=== PATIENT | female | born 1945 | race Caucasian/White ===

== ENCOUNTER 2016-10-29 13:02 | Inpatient (IN) | payer OTHER, MEDICAID ==
[~2016-10-29] VITALS: Ht 149.9 cm; Wt 84.0 kg
[2016-10-29] VITALS (10 sets, daily range): BP systolic 78–101; BP diastolic 40–59
[~2016-10-29 13:02] MED LIST: AMITRIPTYLINE H10 MG PO; ASPIR 8181 MG PO; CIPROFLOXACIN500 MG PO; GEMFIBROZIL600 MG PO; GLUCOTROL10 MG PO; HYDROCHLOROTHIA25 MG PO; JANUVIA100 M1 PO; LAC PO; LANTUS SOLOS100 U/M1 SC; MAC100 PO; NEU300 PO; TENORMIN25 MG PO; TRAMADOL HCL50 MG PO
[2016-10-29 14:15] LABS: PLATELET COUNT 238 x10^3mcL (130-400); RED CELL DISTRIBUTION WIDTH 14.2 % (11.5-14.5)
[2016-10-29 14:25] LABS: BAND NEUTROPHIL 4 % (0-10); BASOPHIL 0 % (0-2); MONOCYTE 6 % (0-7); SEGMENTED NEUTROPHILS 86 % (37-75)
[2016-10-29 14:27] LABS: rbc morphology (normal/abnorm) ABNORMAL (NORMAL)
[2016-10-29 14:28] LABS: PLATELET MORPHOLOGY PLATELETS INCREASED
[2016-10-29 14:40] LABS: ALKALINE PHOSPHATASE 170 U/L (46-116); ALT/SGPT 17 U/L (14-59); AST/SGOT 14 U/L (15-37); BILIRUBIN TOTAL 0.58 mg/dL (0.20-1.00); CALCIUM 8.8 mg/dL (8.5-10.1); CARBON DIOXIDE 29.5 mmol/L (21-32); CHLORIDE SERUM 95 mmol/L (98-107); CREATININE SERUM 1.4 mg/dL (0.6-1.0); POTASSIUM SERUM 3.6 mmol/L (3.5-5.1); SODIUM SERUM 132 mmol/L (136-145); TOTAL PROTEIN, SERUM 7.7 g/dL (6.4-8.2)
[2016-10-29 14:40] LABS: microscopic required? YES; urine erythrocyte 1+ (NEGATIVE)
[2016-10-29 14:41] LABS: ALBUMIN 2.8 g/dL (3.4-5.0)
[2016-10-29 14:43] LABS: GLUCOSE SERUM 457 mg/dL (74-106)
[2016-10-29 14:55] LABS: CK-MB < 0.5 ng/mL (0-3.6); CREATINE KINASE 71 U/L (26-192)
[2016-10-29 16:59] LABS: MAGNESIUM 1.6 mg/dL (1.8-2.4); PHOSPHOROUS 1.9 mg/dL (2.5-4.9)
[2016-10-29 17:01] LABS: T3 TOTAL 0.75 ng/mL
[2016-10-29 17:08] LABS: CHOLESTEROL/HDL RATIO 3.4
[2016-10-29 17:10] LABS: FREE T4 1.18 ng/dL (0.76-1.46); FREE THYROXINE INDEX 2.6 ug/dL (1.4-4.5); T4(THYROXINE) 7.2 ug/dL (4.7-13.3)
[2016-10-30 03:23] VITALS: BP 122/86
[2016-10-30 05:20] LABS: CALCIUM 7.7 mg/dL (8.5-10.1); CARBON DIOXIDE 29.4 mmol/L (21-32); CHLORIDE SERUM 103 mmol/L (98-107); GLUCOSE SERUM 252 mg/dL (74-106); MAGNESIUM 2.4 mg/dL (1.8-2.4); PHOSPHOROUS 2.3 mg/dL (2.5-4.9); POTASSIUM SERUM 3.3 mmol/L (3.5-5.1); SODIUM SERUM 134 mmol/L (136-145)
[2016-10-30 05:22] LABS: BASOPHIL % 0.2 % (0-2); PLATELET COUNT 229 x10^3mcL (130-400); RED CELL DISTRIBUTION WIDTH 14.4 % (11.5-14.5)
[2016-10-30 08:00] VITALS: BP 122/66
[2016-10-30 12:30] VITALS: BP 109/54
[2016-10-30 16:45] VITALS: BP 98/53
[2016-10-30 22:09] VITALS: BP 104/58
[2016-10-31 06:12] VITALS: BP 113/60
[2016-10-31 09:47] VITALS: BP 114/69
[2016-10-31 10:53] LABS: CALCIUM 8.2 mg/dL (8.5-10.1); CARBON DIOXIDE 26.3 mmol/L (21-32); CHLORIDE SERUM 107 mmol/L (98-107); GLUCOSE SERUM 201 mg/dL (74-106); MAGNESIUM 1.9 mg/dL (1.8-2.4); PHOSPHOROUS 2.8 mg/dL (2.5-4.9); POTASSIUM SERUM 4.8 mmol/L (3.5-5.1); SODIUM SERUM 140 mmol/L (136-145)
[2016-10-31 13:05] LABS: BASOPHIL % 0.3 % (0-2); PLATELET COUNT 266 x10^3mcL (130-400); RED CELL DISTRIBUTION WIDTH 15.2 % (11.5-14.5)
[2016-10-31 14:25] VITALS: BP 139/68
[2016-10-31 17:26] VITALS: BP 131/73
[2016-10-31 22:10] VITALS: BP 138/77
[2016-11-01 06:31] LABS: BASOPHIL % 0.5 % (0-2); PLATELET COUNT 286 x10^3mcL (130-400)
[2016-11-01 06:58] LABS: CALCIUM 8.4 mg/dL (8.5-10.1); CARBON DIOXIDE 27.4 mmol/L (21-32); CHLORIDE SERUM 109 mmol/L (98-107); CREATININE SERUM 0.8 mg/dL (0.6-1.0); GLUCOSE SERUM 86 mg/dL (74-106); MAGNESIUM 1.8 mg/dL (1.8-2.4); PHOSPHOROUS 3.4 mg/dL (2.5-4.9); POTASSIUM SERUM 3.9 mmol/L (3.5-5.1); SODIUM SERUM 142 mmol/L (136-145)
[2016-11-01 07:32] LABS: RED CELL DISTRIBUTION WIDTH 14.9 % (11.5-14.5)
[2016-11-01 07:53] VITALS: BP 165/74
[2016-11-01 13:13] VITALS: BP 129/62
[2016-11-01 18:12] VITALS: BP 133/75
[2016-11-01 20:23] VITALS: BP 136/70
[2016-11-02 04:59] VITALS: BP 127/75
[2016-11-02 10:00] VITALS: BP 134/68
[2016-11-02 10:14] VITALS: BP 134/68
[2016-11-02] MEDS ORDERED: BD LACTINEX1.4 MG PO (13:55)
[2016-11-02] MEDS ORDERED: BACTRIM DS1 TAB PO (13:55)
[2016-11-02] MEDS ORDERED: DETROL1 MG PO (13:57)
[2016-11-02 14:05] VITALS: BP 135/69
== END 2016-11-02 17:33 | disposition home or self-care (01) | DRG 871 ==
LOC: ED 13:02 → DU 15:37 → IC 15:37 → DU 16:32 → IC 17:54 → DU 10-30 16:34
PROVIDERS: Emergency Medicine; Family Medicine; ADMIT Family Medicine
PROC: 05HM33Z Insertion of Infusion Device into Right Internal Jugular Vein, Percutaneous Approach (ICD-10-PCS; principal; 2016-10-29)
PROC: B543ZZA Ultrasonography of Right Jugular Veins, Guidance (ICD-10-PCS; 2016-10-29)
DX: A41.9 Sepsis, unspecified organism (principal); N17.0 Acute kidney failure with tubular necrosis; E43 Unspecified severe protein-calorie malnutrition; R65.21 Severe sepsis with septic shock; I50.43 Acute on chronic combined systolic (congestive) and diastolic (congestive) heart failure; N39.0 Urinary tract infection, site not specified; D68.69 Other thrombophilia; E11.65 Type 2 diabetes mellitus with hyperglycemia; E83.42 Hypomagnesemia; E87.6 Hypokalemia; E83.39 Other disorders of phosphorus metabolism; J45.909 Unspecified asthma, uncomplicated; M19.90 Unspecified osteoarthritis, unspecified site; I10 Essential (primary) hypertension; E66.9 Obesity, unspecified; Z79.82 Long term (current) use of aspirin; Z79.4 Long term (current) use of insulin; Z68.37 Body mass index [BMI] 37.0-37.9, adult; Z79.84 Long term (current) use of oral hypoglycemic drugs
CPT/HCPCS: 36556; 82962; 83880; 84439; 97110-GP; 97116-GP; 97530-GP; J0696; J1642; J1815; J1885; J2060; J2270; J2550; J3475; J3490; J7030; J7040; J8597; Q0092

== ENCOUNTER 2017-03-25 13:43 | Emergency (ER) | payer OTHER, MEDICAID ==
[~2017-03-25 13:43] MED LIST changes: +BACTRIM DS1 TAB PO; +BD LACTINEX1.4 MG PO; +DETROL1 MG PO
[2017-03-25 14:43] LABS: BASOPHIL % 0.4 % (0-2); PLATELET COUNT 273 x10^3mcL (130-400); RED CELL DISTRIBUTION WIDTH 14.3 % (11.5-14.5)
[2017-03-25 15:12] LABS: ALKALINE PHOSPHATASE 120 U/L (46-116); ALT/SGPT 14 U/L (14-59); AST/SGOT 13 U/L (15-37); BILIRUBIN TOTAL 0.4 mg/dL (0.20-1.00); CALCIUM 8.7 mg/dL (8.5-10.1); CARBON DIOXIDE 29.3 mmol/L (21-32); CHLORIDE SERUM 99 mmol/L (98-107); CREATININE SERUM 1.3 mg/dL (0.6-1.0); POTASSIUM SERUM 4.4 mmol/L (3.5-5.1); SODIUM SERUM 137 mmol/L (136-145); TOTAL PROTEIN, SERUM 7.3 g/dL (6.4-8.2)
[2017-03-25 15:26] LABS: GLUCOSE SERUM 469 mg/dL (74-106)
[2017-03-25 16:55] VITALS: BP 134/59
== END 2017-03-25 16:55 | disposition home or self-care (01) ==
LOC: ED 13:43
PROVIDERS: Emergency Medicine
DX: E11.40 Type 2 diabetes mellitus with diabetic neuropathy, unspecified (principal); E11.65 Type 2 diabetes mellitus with hyperglycemia; J45.909 Unspecified asthma, uncomplicated; I10 Essential (primary) hypertension; M19.90 Unspecified osteoarthritis, unspecified site
CPT/HCPCS: 36415; 87804; J1815; Q0092

== ENCOUNTER 2017-05-30 12:19 | Emergency (ER) | payer OTHER, MEDICAID ==
[~2017-05-30] VITALS: Ht 149.9 cm; Wt 81.6 kg
[2017-05-30 12:23] VITALS: Ht 149.9 cm; Wt 81.6 kg
[2017-05-30 14:28] LABS: BASOPHIL % 0.2 % (0-2); PLATELET COUNT 296 x10^3mcL (130-400)
[2017-05-30 14:29] LABS: RED CELL DISTRIBUTION WIDTH 15.4 % (11.5-14.5)
[2017-05-30 15:02] LABS: UA SPECIFIC GRAVITY 1.015 (1.005-1.035); microscopic required? YES; urine erythrocyte TRACE (NEGATIVE)
[2017-05-30 15:18] LABS: AMPHETAMINE QUAL UR NONE DETECTED (NEG <=1000)
[2017-05-30 15:29] LABS: CALCIUM 9.1 mg/dL (8.5-10.1); CARBON DIOXIDE 25.3 mmol/L (21-32); CHLORIDE SERUM 102 mmol/L (98-107); CREATININE SERUM 1.4 mg/dL (0.6-1.0); GLUCOSE SERUM 300 mg/dL (74-106); POTASSIUM SERUM 4.7 mmol/L (3.5-5.1); SODIUM SERUM 133 mmol/L (136-145)
[2017-05-30 15:41] LABS: ALKALINE PHOSPHATASE 156 U/L (46-116); ALT/SGPT 19 U/L (14-59); AMYLASE 33 U/L (25-115); AST/SGOT 14 U/L (15-37); BILIRUBIN TOTAL 0.2 mg/dL (0.20-1.00); HDL CHOLESTEROL 40 mg/dL (40-60); LIPASE 50 IU/L (73-393); T4(THYROXINE) 7.5 ug/dL (4.7-13.3); TOTAL PROTEIN, SERUM 7.4 g/dL (6.4-8.2)
[2017-05-30 15:43] LABS: ALBUMIN 3.1 g/dL (3.4-5.0); CHOLESTEROL 126 mg/dL (<200)
[2017-05-30 19:29] VITALS: BP 149/76
== END 2017-05-30 19:29 | disposition home or self-care (01) ==
LOC: ED 12:19
PROVIDERS: Emergency Medicine
DX: R42 Dizziness and giddiness (principal); R51 Headache; E11.9 Type 2 diabetes mellitus without complications; S00.83XD Contusion of other part of head, subsequent encounter; J45.909 Unspecified asthma, uncomplicated; I10 Essential (primary) hypertension; M19.90 Unspecified osteoarthritis, unspecified site; M25.511 Pain in right shoulder; W18.30XD Fall on same level, unspecified, subsequent encounter
CPT/HCPCS: 82962; 83880; J1815; J7030; J8597

== ENCOUNTER 2017-07-24 19:04 | Emergency (ER) | payer OTHER, MEDICAID ==
[~2017-07-24] VITALS: Ht 149.9 cm; Wt 82.6 kg
[2017-07-24 19:44] VITALS: Ht 149.9 cm; Wt 82.6 kg
[2017-07-24 21:22] VITALS: BP 130/71
== END 2017-07-24 21:22 | disposition home or self-care (01) ==
LOC: ED 19:04
DX: S91.112A Laceration without foreign body of left great toe without damage to nail, initial encounter (principal); J45.909 Unspecified asthma, uncomplicated; I10 Essential (primary) hypertension; E11.9 Type 2 diabetes mellitus without complications; W22.8XXA Striking against or struck by other objects, initial encounter; Y93.E1 Activity, personal bathing and showering; Y92.098 Other place in other non-institutional residence as the place of occurrence of the external cause; Y99.9 Unspecified external cause status
CPT/HCPCS: 90715; J2001

== ENCOUNTER 2017-08-05 15:46 | Inpatient (IN) | payer OTHER, MEDICAID ==
[~2017-08-05] VITALS: Ht 152.4 cm; Wt 86.8 kg
[2017-08-05 16:01] VITALS: Ht 152.4 cm; Wt 86.8 kg
[2017-08-05 16:52] LABS: BASOPHIL % 0.3 % (0-2); PLATELET COUNT 262 x10^3mcL (130-400); RED CELL DISTRIBUTION WIDTH 14.3 % (11.5-14.5)
[2017-08-05 17:00] LABS: CALCIUM 8.5 mg/dL (8.5-10.1); CARBON DIOXIDE 28.1 mmol/L (21-32); CHLORIDE SERUM 111 mmol/L (98-107); GLUCOSE SERUM 180 mg/dL (74-106); SODIUM SERUM 147 mmol/L (136-145)
[2017-08-05 17:04] LABS: ALKALINE PHOSPHATASE 148 U/L (46-116); ALT/SGPT 16 U/L (14-59); AST/SGOT 13 U/L (15-37); BILIRUBIN TOTAL 0.22 mg/dL (0.20-1.00); CHOLESTEROL 137 mg/dL (<200); HDL CHOLESTEROL 39 mg/dL (40-60); TOTAL PROTEIN, SERUM 6.7 g/dL (6.4-8.2)
[2017-08-05 17:05] LABS: ALBUMIN 2.9 g/dL (3.4-5.0)
[2017-08-05] MEDS ORDERED: ATENOLOL50 MG PO (17:59)
[2017-08-05] MEDS ORDERED: DICLOFENAC SODI75 MG (18:00)
[2017-08-05] MEDS ORDERED: METFORMIN HCL850 MG PO (18:00)
[2017-08-05 18:09] LABS: microscopic required? YES; urine erythrocyte NEGATIVE (NEGATIVE)
[2017-08-05 18:48] LABS: CHOLESTEROL/HDL RATIO 3.8; MAGNESIUM 1.8 mg/dL (1.8-2.4); PHOSPHOROUS 3.2 mg/dL (2.5-4.9)
[2017-08-05 18:59] LABS: T3 TOTAL 0.81 ng/mL
[2017-08-05 19:04] LABS: FREE T4 0.91 ng/dL (0.76-1.46); FREE THYROXINE INDEX 2.1 ug/dL (1.4-4.5); T4(THYROXINE) 5.9 ug/dL (4.7-13.3)
[2017-08-05] MEDS ORDERED: LANTUS SOLOS100 U/M1 SQ (19:04)
[2017-08-05 19:24] VITALS: BP 138/51
[2017-08-06 02:41] LABS: microscopic required? NO
[2017-08-06 02:51] LABS: urine erythrocyte NEGATIVE (NEGATIVE)
[2017-08-06 04:12] VITALS: BP 137/64
[2017-08-06 05:46] VITALS: BP 138/51
[2017-08-06 05:58] LABS: CALCIUM 8.4 mg/dL (8.5-10.1); CARBON DIOXIDE 24.4 mmol/L (21-32); CHLORIDE SERUM 108 mmol/L (98-107); CREATININE SERUM 1.2 mg/dL (0.6-1.0); GLUCOSE SERUM 350 mg/dL (74-106); MAGNESIUM 1.7 mg/dL (1.8-2.4); PHOSPHOROUS 3.6 mg/dL (2.5-4.9); POTASSIUM SERUM 5.2 mmol/L (3.5-5.1); SODIUM SERUM 143 mmol/L (136-145)
[2017-08-06 06:05] LABS: BASOPHIL % 0.1 % (0-2); PLATELET COUNT 256 x10^3mcL (130-400); RED CELL DISTRIBUTION WIDTH 14.5 % (11.5-14.5)
[2017-08-06 12:42] VITALS: BP 95/34
[2017-08-06 17:35] VITALS: BP 120/68
[2017-08-06 20:54] VITALS: BP 101/59
[2017-08-07 06:03] VITALS: BP 112/48
[2017-08-07 06:11] LABS: BASOPHIL % 0.1 % (0-2); PLATELET COUNT 260 x10^3mcL (130-400)
[2017-08-07 06:20] LABS: CALCIUM 8.1 mg/dL (8.5-10.1); CARBON DIOXIDE 22.6 mmol/L (21-32); CHLORIDE SERUM 106 mmol/L (98-107); CREATININE SERUM 1.5 mg/dL (0.6-1.0); GLUCOSE SERUM 261 mg/dL (74-106); MAGNESIUM 1.8 mg/dL (1.8-2.4); PHOSPHOROUS 3.7 mg/dL (2.5-4.9); SODIUM SERUM 140 mmol/L (136-145)
[2017-08-07 07:10] LABS: RED CELL DISTRIBUTION WIDTH 14.7 % (11.5-14.5)
[2017-08-07 08:23] VITALS: BP 125/59
[2017-08-07 12:55] VITALS: BP 99/42
[2017-08-07 17:09] VITALS: BP 108/47
[2017-08-07 20:30] VITALS: BP 101/56
[2017-08-08 05:36] VITALS: BP 100/67
[2017-08-08 06:13] LABS: PLATELET COUNT 239 x10^3mcL (130-400); RED CELL DISTRIBUTION WIDTH 14.4 % (11.5-14.5)
[2017-08-08 06:34] LABS: BASOPHIL % 0 % (0-2)
[2017-08-08 06:38] LABS: CALCIUM 7.9 mg/dL (8.5-10.1); CHLORIDE SERUM 110 mmol/L (98-107); CREATININE SERUM 1.5 mg/dL (0.6-1.0); GLUCOSE SERUM 202 mg/dL (74-106); MAGNESIUM 2.1 mg/dL (1.8-2.4); PHOSPHOROUS 3.5 mg/dL (2.5-4.9); SODIUM SERUM 143 mmol/L (136-145)
[2017-08-08 09:50] VITALS: BP 119/54
[2017-08-08 13:29] VITALS: BP 108/54
[2017-08-08] MEDS ORDERED: ZES5 PO (14:18)
[2017-08-08] MEDS ORDERED: NEU300 PO (14:19)
[2017-08-08] MEDS ORDERED: MEDDP PO (14:19)
[2017-08-08 15:35] VITALS: BP 108/54
[2017-08-08 16:42] VITALS: BP 108/54
[2017-08-08 16:43] VITALS: BP 108/54
== END 2017-08-08 17:20 | disposition home or self-care (01) | DRG 871 ==
LOC: ED 15:46 → DU 18:18
PROVIDERS: Emergency Medicine; Family Medicine
PROC: 7W0 Osteopathic, Anatomical Regions, Treatment (ICD-10-PCS; principal; 2017-08-06)
PROC: 7W0 Osteopathic, Anatomical Regions, Treatment (ICD-10-PCS; 2017-08-06)
PROC: 7W01X1Z Osteopathic Treatment of Cervical Region using Fascial Release (ICD-10-PCS; 2017-08-06)
DX: A41.9 Sepsis, unspecified organism (principal); N17.0 Acute kidney failure with tubular necrosis; J15.9 Unspecified bacterial pneumonia; J96.01 Acute respiratory failure with hypoxia; E44.0 Moderate protein-calorie malnutrition; E87.0 Hyperosmolality and hypernatremia; N39.0 Urinary tract infection, site not specified; J45.901 Unspecified asthma with (acute) exacerbation; T81.33XA Disruption of traumatic injury wound repair, initial encounter; E11.621 Type 2 diabetes mellitus with foot ulcer; E11.65 Type 2 diabetes mellitus with hyperglycemia; E11.42 Type 2 diabetes mellitus with diabetic polyneuropathy; E87.5 Hyperkalemia; E83.42 Hypomagnesemia; M19.90 Unspecified osteoarthritis, unspecified site; M75.01 Adhesive capsulitis of right shoulder; M99.01 Segmental and somatic dysfunction of cervical region; M99.02 Segmental and somatic dysfunction of thoracic region; M99.07 Segmental and somatic dysfunction of upper extremity; G89.29 Other chronic pain; Z66 Do not resuscitate; Z79.82 Long term (current) use of aspirin; Z79.4 Long term (current) use of insulin; Z68.37 Body mass index [BMI] 37.0-37.9, adult
CPT/HCPCS: 83880; 84439; 90732; 94150; J1815; J1885; J1940; J1956; J2920; J2930; J7030; J7613; J7620; J7626; Q0092

== ENCOUNTER 2017-11-06 03:48 | Inpatient (IN) | payer OTHER, MEDICAID ==
[2017-11-06] VITALS (8 sets, daily range): BP systolic 92–133; BP diastolic 53–71; Ht 149.9 cm; Wt 83.0 kg
[~2017-11-06] VITALS: Ht 149.9 cm; Wt 83.0 kg
[~2017-11-06 03:48] MED LIST changes: +ATENOLOL50 MG PO; +DICLOFENAC SODI75 MG; +LANTUS SOLOS100 U/M1 SQ; +MEDDP PO; +METFORMIN HCL850 MG PO; +ZES5 PO
[2017-11-06 05:01] LABS: CALCIUM 8.8 mg/dL (8.5-10.1); CARBON DIOXIDE 24.3 mmol/L (21-32); CHLORIDE SERUM 104 mmol/L (98-107); CREATININE SERUM 1.3 mg/dL (0.6-1.0); GLUCOSE SERUM 186 mg/dL (74-106); POTASSIUM SERUM 4.6 mmol/L (3.5-5.1); SODIUM SERUM 135 mmol/L (136-145)
[2017-11-06 05:05] LABS: ALKALINE PHOSPHATASE 141 U/L (46-116); AST/SGOT 18 U/L (15-37); BILIRUBIN TOTAL 0.15 mg/dL (0.20-1.00); LIPASE 84 IU/L (73-393)
[2017-11-06 05:14] LABS: BASOPHIL % 0.3 % (0-2); PLATELET COUNT 257 x10^3mcL (130-400)
[2017-11-06] MEDS ORDERED: HYDROCHLOROTH12.5 M2 PO (05:17)
[2017-11-06] MEDS ORDERED: XANAX0.25 MG (05:18)
[2017-11-06 05:19] LABS: ALT/SGPT 20 U/L (14-59); RED CELL DISTRIBUTION WIDTH 14.8 % (11.5-14.5)
[2017-11-06 07:09] LABS: CHOLESTEROL 144 mg/dL (<200); PHOSPHOROUS 3.3 mg/dL (2.5-4.9)
[2017-11-06 07:11] LABS: CHOLESTEROL/HDL RATIO 4.5; HDL CHOLESTEROL 32 mg/dL (40-60); TRIGLYCERIDES 429 mg/dL (<150)
[2017-11-06 07:24] LABS: microscopic required? YES; urine erythrocyte NEGATIVE (NEGATIVE)
[2017-11-06 07:45] LABS: T3 TOTAL 0.82 ng/mL
[2017-11-06 07:47] LABS: FREE T4 1.06 ng/dL (0.76-1.46); FREE THYROXINE INDEX 2.2 ug/dL (1.4-4.5); T4(THYROXINE) 6.6 ug/dL (4.7-13.3)
== END 2017-11-06 22:12 | disposition short-term general hospital (02) | DRG 280 ==
LOC: ED 03:48 → DU 05:59
PROVIDERS: Emergency Medicine; Internal Medicine
DX: I21.4 Non-ST elevation (NSTEMI) myocardial infarction (principal); N17.0 Acute kidney failure with tubular necrosis; N39.0 Urinary tract infection, site not specified; E11.42 Type 2 diabetes mellitus with diabetic polyneuropathy; E11.65 Type 2 diabetes mellitus with hyperglycemia; J45.909 Unspecified asthma, uncomplicated; M19.90 Unspecified osteoarthritis, unspecified site; I10 Essential (primary) hypertension; R80.9 Proteinuria, unspecified; E78.00 Pure hypercholesterolemia, unspecified; E66.9 Obesity, unspecified; Z79.82 Long term (current) use of aspirin; Z79.4 Long term (current) use of insulin; Z68.36 Body mass index [BMI] 36.0-36.9, adult; Z87.891 Personal history of nicotine dependence; Z79.84 Long term (current) use of oral hypoglycemic drugs
CPT/HCPCS: 84439; 94150; J1644; J1815; J1956; J2765; J2930; J7030; J7620; J8597; Q0092

== ENCOUNTER 2017-11-25 00:17 | Inpatient (IN) | payer OTHER, MEDICAID ==
[~2017-11-25] VITALS: Ht 149.9 cm; Wt 84.4 kg
[~2017-11-25 00:17] MED LIST changes: +HYDROCHLOROTH12.5 M2 PO; +XANAX0.25 MG
[2017-11-25 00:28] VITALS: Ht 149.9 cm; Wt 84.4 kg
[2017-11-25 01:29] LABS: BASOPHIL % 0.3 % (0-2); PLATELET COUNT 295 x10^3mcL (130-400); RED CELL DISTRIBUTION WIDTH 14.5 % (11.5-14.5)
[2017-11-25 01:47] LABS: CALCIUM 8.8 mg/dL (8.5-10.1); CARBON DIOXIDE 25.3 mmol/L (21-32); CHLORIDE SERUM 105 mmol/L (98-107); CREATININE SERUM 1.6 mg/dL (0.6-1.0); GLUCOSE SERUM 173 mg/dL (74-106); POTASSIUM SERUM 4.6 mmol/L (3.5-5.1); SODIUM SERUM 139 mmol/L (136-145)
[2017-11-25 01:51] LABS: ALKALINE PHOSPHATASE 146 U/L (46-116); ALT/SGPT 19 U/L (14-59); AST/SGOT 16 U/L (15-37); BILIRUBIN TOTAL 0.2 mg/dL (0.20-1.00); TOTAL PROTEIN, SERUM 6.9 g/dL (6.4-8.2)
[2017-11-25 01:56] LABS: ALBUMIN 2.8 g/dL (3.4-5.0)
[2017-11-25 03:12] LABS: UA SPECIFIC GRAVITY >=1.030 (1.005-1.035); microscopic required? YES; urine erythrocyte NEGATIVE (NEGATIVE)
[2017-11-25 03:23] LABS: AMPHETAMINE QUAL UR NONE DETECTED (See below)
[2017-11-25 04:15] VITALS: BP 99/51
[2017-11-25 05:31] LABS: MAGNESIUM 2.5 mg/dL (1.8-2.4); PHOSPHOROUS 3.6 mg/dL (2.5-4.9)
[2017-11-25 05:35] LABS: T3 TOTAL 0.8 ng/mL
[2017-11-25 05:36] LABS: CHOLESTEROL/HDL RATIO 3.8
[2017-11-25 05:43] LABS: FREE T4 0.86 ng/dL (0.76-1.46); FREE THYROXINE INDEX 2.1 ug/dL (1.4-4.5)
[2017-11-25 08:36] VITALS: BP 104/56
[2017-11-25 12:47] VITALS: BP 119/89
[2017-11-25 16:42] VITALS: BP 133/76
[2017-11-25] MEDS ORDERED: MEDDP PO (17:28)
[2017-11-25] MEDS ORDERED: PROAIR HFA8.5 GM IH (17:29)
== END 2017-11-25 18:44 | disposition home or self-care (01) | DRG 202 ==
LOC: ED 00:17 → DU 02:39
PROVIDERS: Emergency Medicine; Internal Medicine
DX: J45.901 Unspecified asthma with (acute) exacerbation (principal); N17.0 Acute kidney failure with tubular necrosis; E43 Unspecified severe protein-calorie malnutrition; E11.65 Type 2 diabetes mellitus with hyperglycemia; E83.41 Hypermagnesemia; I10 Essential (primary) hypertension; Z95.5 Presence of coronary angioplasty implant and graft
CPT/HCPCS: 82962; 83880; 84439; J2930; J7030; J7620

== ENCOUNTER 2018-09-06 12:33 | Emergency (ER) | payer OTHER, MEDICAID ==
[~2018-09-06] VITALS: Ht 149.9 cm; Wt 81.2 kg
[~2018-09-06 12:33] MED LIST changes: +PROAIR HFA8.5 GM IH
[2018-09-06 12:41] VITALS: Ht 149.9 cm; Wt 81.2 kg
[2018-09-06] MEDS ORDERED: ATORVASTATIN CA40 M1 PO (12:59)
[2018-09-06] MEDS ORDERED: TOPROL XL25 MG PO (12:59)
[2018-09-06] MEDS ORDERED: CLOPIDOGREL75 M1 PO (13:00)
[2018-09-06 13:32] LABS: BASOPHIL % 0.4 % (0-2); PLATELET COUNT 240 x10^3mcL (130-400)
[2018-09-06 13:33] LABS: RED CELL DISTRIBUTION WIDTH 15.4 % (11.5-14.5)
[2018-09-06 13:53] LABS: CALCIUM 8.7 mg/dL (8.5-10.1); CARBON DIOXIDE 28.4 mmol/L (21-32); CHLORIDE SERUM 107 mmol/L (98-107); GLUCOSE SERUM 333 mg/dL (74-106); POTASSIUM SERUM 5.1 mmol/L (3.5-5.1); SODIUM SERUM 141 mmol/L (136-145)
[2018-09-06 13:55] LABS: ALKALINE PHOSPHATASE 192 U/L (46-116); ALT/SGPT 20 U/L (14-59); AST/SGOT 11 U/L (15-37); BILIRUBIN TOTAL 0.2 mg/dL (0.20-1.00); TOTAL PROTEIN, SERUM 6.3 g/dL (6.4-8.2)
[2018-09-06 14:03] LABS: ALBUMIN 2.8 g/dL (3.4-5.0)
[2018-09-06 16:31] VITALS: BP 130/48
== END 2018-09-06 16:31 | disposition home or self-care (01) ==
LOC: ED 12:33
PROVIDERS: Emergency Medicine
DX: J06.9 Acute upper respiratory infection, unspecified (principal); M19.90 Unspecified osteoarthritis, unspecified site; J45.909 Unspecified asthma, uncomplicated; I10 Essential (primary) hypertension; E11.9 Type 2 diabetes mellitus without complications
CPT/HCPCS: J1885; J7030; J7613; J7644; Q0092

== ENCOUNTER 2020-01-10 09:28 | Emergency (ER) | payer OTHER, MEDICAID ==
[~2020-01-10] VITALS: Ht 152.4 cm; Wt 79.8 kg
[~2020-01-10 09:28] MED LIST changes: +ATORVASTATIN CA40 M1 PO; +CIP500 PO; +CIPRO500 MG PO; +CLOPIDOGREL75 M1 PO; +COR6 PO; +COREG6.25 M1 PO; +FLO4 PO; +FORTAMET500 M1 PO; +LANTI; +LASIX40 MG PO; +MIDODRINE HCL5 M1 PO; +MONTELUKAST SOD10 M1 PO; +NORCO 10-325 T1 EACH PO; +TOPROL XL25 MG PO; +ULTRAM50 MG
[2020-01-10 09:52] VITALS: Ht 152.4 cm; Wt 79.8 kg
[2020-01-10 10:28] LABS: BASOPHIL % 0.2 % (0-2); CARBON DIOXIDE 31.5 mmol/L (21-32); CHLORIDE SERUM 99 mmol/L (98-107); CREATININE SERUM 1.6 mg/dL (0.6-1.0); GLUCOSE SERUM 328 mg/dL (74-106); PLATELET COUNT 272 x10^3mcL (130-400); POTASSIUM SERUM 4.7 mmol/L (3.5-5.1); SODIUM SERUM 136 mmol/L (136-145)
[2020-01-10 10:29] LABS: RED CELL DISTRIBUTION WIDTH 15.2 % (11.5-14.5)
[2020-01-10 10:32] LABS: ALKALINE PHOSPHATASE 145 U/L (46-116); ALT/SGPT 14 U/L (14-59); AST/SGOT 18 U/L (15-37); BILIRUBIN TOTAL 0.5 mg/dL (0.20-1.00); TOTAL PROTEIN, SERUM 6.9 g/dL (6.4-8.2)
[2020-01-10 11:35] VITALS: BP 128/74
== END 2020-01-10 11:17 | disposition home or self-care (01) ==
LOC: ED 09:28
PROVIDERS: Emergency Medicine
DX: E11.649 Type 2 diabetes mellitus with hypoglycemia without coma (principal); N39.0 Urinary tract infection, site not specified; J45.909 Unspecified asthma, uncomplicated; I10 Essential (primary) hypertension; M19.90 Unspecified osteoarthritis, unspecified site; Z86.73 Personal history of transient ischemic attack (TIA), and cerebral infarction without residual deficits
CPT/HCPCS: 82962; J0696; Q0092

== ENCOUNTER 2020-01-18 14:39 | Emergency (ER) | payer OTHER, MEDICAID ==
[~2020-01-18] VITALS: Ht 147.3 cm; Wt 79.8 kg
[2020-01-18 17:19] VITALS: BP 131/76
[2020-01-18 17:19] LABS: UA SPECIFIC GRAVITY 1.025 (1.005-1.035); microscopic required? YES; urine erythrocyte 3+ (NEGATIVE)
== END 2020-01-18 17:19 | disposition home or self-care (01) ==
LOC: ED 14:39
PROVIDERS: Specialist
DX: N39.0 Urinary tract infection, site not specified (principal); J45.909 Unspecified asthma, uncomplicated; I10 Essential (primary) hypertension; E11.9 Type 2 diabetes mellitus without complications; I25.2 Old myocardial infarction

== ENCOUNTER 2020-03-03 11:24 | Emergency (ER) | payer OTHER, MEDICAID ==
[~2020-03-03] VITALS: Ht 149.9 cm; Wt 79.8 kg
[2020-03-03 13:11] VITALS: BP 104/68
[2020-03-03] MEDS ORDERED: KEFLEX500 M1 PO (13:46)
== END 2020-03-03 13:54 | disposition home or self-care (01) ==
LOC: ED 11:24
DX: N39.0 Urinary tract infection, site not specified (principal); J45.909 Unspecified asthma, uncomplicated; I10 Essential (primary) hypertension; E11.9 Type 2 diabetes mellitus without complications; M19.90 Unspecified osteoarthritis, unspecified site; Z86.73 Personal history of transient ischemic attack (TIA), and cerebral infarction without residual deficits
CPT/HCPCS: 82962; J7030